=== PATIENT | male | born 1985 | race Caucasian/White ===

== ENCOUNTER 2016-05-10 05:28 | Emergency (ER) | payer BC ==
[~2016-05-10] VITALS: Ht 172.7 cm; Wt 81.6 kg
[2016-05-10 05:49] VITALS: BP 139/88
[2016-05-10] MEDS ORDERED: PENICILLIN G BENZATHINE 2.4 MMU/4 ML ML IM ONE ×2 (06:35→07:00)
[2016-05-10] MEDS ORDERED: DEXAMETHASONE SOD PHOSPHATE 10 MG/ML VIAL ONE (06:42)
[2016-05-10] MEDS ORDERED: DEXAMETHASONE 1 MG TABLET PO ONE (07:00)
== END 2016-05-10 07:54 | disposition home or self-care (01) ==
LOC: ER 05:34
DX: J02.9 Acute pharyngitis, unspecified (principal); J35.1 Hypertrophy of tonsils; L53.8 Other specified erythematous conditions; F17.200 Nicotine dependence, unspecified, uncomplicated
CPT/HCPCS: 96372; 99283; A4606; J0558; J1100; Z7610

== ENCOUNTER 2017-04-11 20:43 | Emergency (ER) | payer BC ==
[~2017-04-11] VITALS: Ht 172.7 cm; Wt 83.9 kg
[2017-04-11 20:56] VITALS: BP 118/74
== END 2017-04-11 22:30 | disposition home or self-care (01) ==
LOC: ER 20:52
DX: S63.91XA Sprain of unspecified part of right wrist and hand, initial encounter (principal); F17.200 Nicotine dependence, unspecified, uncomplicated; W19.XXXA Unspecified fall, initial encounter; Y93.89 Activity, other specified; Y92.89 Other specified places as the place of occurrence of the external cause; Y99.8 Other external cause status
CPT/HCPCS: 29125; 73130; 99284; A4606; Z7610